=== PATIENT | female | born 1980 | race Asian ===

== ENCOUNTER 2025-02-04 10:41 | Emergency (ER) | payer OTHER, SELFPAY ==
[2025-02-04 10:42] VITALS: BP 171/112
--- NOTE | 2025-02-04 11:11 | ED.GENMED ---
History of Present Illness
General
Chief Complaint: Headache
Source: patient
Time Seen by Provider: 02/04/25 10:59
History of Present Illness
History of Present Illness:
44-year-old female with past medical history of hypertension (newly diagnosed) presenting to the emergency department for evaluation at the request of primary care provider for evaluation after patient has noted she has had a left-sided headache for
the last 3 to 4 days, saw the primary care in office yesterday where she was found to be hypertensive, treated with a 5 mg tablet of amlodipine and advised to come back to the ER today where she was found to still be hypertensive and due to the
headache was recommended to come to the ER for further evaluation. Patient took 2 Tylenol yesterday with no relief. She did not take anything for the headache today, she did take 10 mg of amlodipine prior to arrival. Prior to the last couple of
days she had never taken any medications for blood pressure in the past. Patient does note that about 1 month ago she did have an abnormal sensation on the left side of her head while driving to [place] for work describing it to be as if she were
floating/felt spacey with the symptoms resolving after a few hours. She denies any visual disturbances including diplopia, focal weakness or numbness, chest pain or shortness of breath, abdominal pain, nausea, vomiting, fevers or recent illnesses.
Patient does endorse being under a fair amount of stress due to job related issues. Family history is unknown
Past History
Past History
ED Past Medical History: HTN; Negative Asthma, Hypercholesterolemia or NIDDM
ED Past Surgical History: Gynecological
Social History
Tobacco: Non-smoker
Alcohol: Occasional
Drug: None
Personal:
Living: with family
Review of Systems
Review of Systems
All Other Systems: ROS reviewed and negative except as documented in HPI and ROS
Phy Exam
Physical Exam
Physical Exam:
GENERAL: Alert , in no apparent distress
HEAD: Normocephalic atraumatic
EYE: pupils equal and reactive, 4 mm bilateral, EOMI
NECK: Supple
ENT: o/p clr, mmm.
CARDIAC: Regular rate and rhythm, no murmur.
LUNGS: Clear breath sounds bilaterally, no acute respiratory distress, no wheezes/rales/rhonchi
ABDOMEN: Soft, without focal tenderness, no r/g, no cvat
NEUROLOGICAL: Alert and oriented, no focal neuro deficits, ambulates with steady gait, moves all extremities
SKIN: Warm and dry, skin intact.
MUSCULOSKELETAL: No edema, well perfused.
PSYCH: Normal and appropriate interaction.
Scores
Heart Failure Risk
Heart Failure Risk Score: Not Applicable
Heart Score for Chest Pain Patients
STEMI patient?: Not applicable
Withdrawal Assessment of Alcohol
Withdrawal Assessment Completed?: Not applicable
Course
Orders/Labs/Results
Orders:
Orders
02/04/25 10:50
Test Result ONCE
02/04/25 11:09
CT Head W/o Iv Contrast Urgent
Comment:
Reason For Exam: left sided headache, HTN
02/04/25 11:44
Basic Metabolic Panel Urgent
Beta Hcg Serum Qualitative Screen [HCG, Serum Qualitative Screen] Urgent
CBC/With Diff [Complete Blood Count/With Diff] Urgent
Troponin I Urgent
02/04/25 12:36
Losartan [Cozaar] 50 mg PO NOW STA
Abnormal Lab Results
02/04/25
11:44
Chloride 108 H mmol/L
(98-107)
Glucose 107 H mg/dl
(70-99)
02/04/25 11:44
02/04/25 11:44
Vital Signs
Initial and Last Documented VS:
Initial Vital Signs
Temp Pulse Resp BP Pulse Ox
98.5 F 68 18 171/112 100
02/04/25 10:42 02/04/25 10:42 02/04/25 10:42 02/04/25 10:42 02/04/25 10:42
Last Documented Vital Signs
Temp Pulse Resp BP Pulse Ox
98.5 F 60 18 141/96 98
02/04/25 10:42 02/04/25 12:57 02/04/25 11:39 02/04/25 13:00 02/04/25 11:39
MDM/Problems Addressed
Differential Diagnosis Includes:
Hypertension
Atypical migraine
Hypertensive urgency/emergency
CVA
Intracranial bleeding
Renal dysfunction
No symptoms to suggest infectious etiology
Given age less concern for giant cell arteritis
MDM/Problems Addressed:
44-year-old female presenting to the ER for evaluation of mild left-sided headache, found to be hypertensive by primary care provider over the last 2 days, sent for further evaluation. Hypertensive here but in no acute distress no focal neurologic
deficits. Took 10 mg of amlodipine earlier today. She is declining anything for her headache. Labs and CT ordered. Patient had EKG done yesterday at her primary care provider.
*Radiology
Radiology exam reviewed: radiology read reviewed
*Pulse Oximetry
SaO2: 100
Oxygen Mode of Delivery: Room air
Patient hypoxic: no
*Critical Care Note
Total Time (30-74mins, 75-104mins- exclusive of procedures): Not Applicable
Patient Management
Discussion with other providers: PCP
Escalation/DeEscalation of care consider admission/obs:
Patient blood pressure 140/100 on my reevaluation. Reviewed labs and CT imaging with patient and she ultimately wishes to be discharged home. Offered medication here however patient continues to decline. I contacted primary care provider and
reviewed our work here, requesting we give patient a dose of 50 mg losartan orally as well as a prescription for this and she will follow-up with the patient on continued outpatient basis. Patient advised on dietary modification as well as return
precautions to the ER. 1 month supply of the losartan was sent to pharmacy, continue to take the amlodipine as prescribed by primary care provider. Stable for discharge home otherwise.
ED Attending Note
-
Portions of this chart may have been created with voice recognition software.� Occasional wrong word or��sound alike� substitutions may have occurred due to the inherent limitations of voice recognition software.
Discharge Plan
Departure
Patient Disposition: Home (Routine Discharge)
Date of Disposition: 02/04/25
Time of Disposition: 12:36
Patient with high blood pressure during this ER visit?: Yes
Discharge Problem:
Hypertension
Instructions: High blood pressure in adults
Prescriptions:
New
losartan 50 mg tablet
50 mg PO HS Qty: 30 0RF
Referrals:
Narda Almendarez DO [Family Provider, Family Practice]
Interventions
Interventions:
*Risk Screen - Suicide Last Done: 02/04/25 10:42
*General Assessment Last Done: 02/04/25 10:42
*Neglect/Abuse Screening Last Done: 02/04/25 10:42
*ED- Fall Risk Assessment Last Done: 02/04/25 13:02
*ED COVID-19 Vaccine History Last Done: 02/04/25 11:40
*Nursing Disposition Last Done: 02/04/25 13:02
ED- Neurological Assessment Last Done: 02/04/25 13:02
Discharge Date and Time
Discharge Date/Time: 02/04/25 13:02
Print Language: DOMINICAN
[2025-02-04 11:39] VITALS: BP 180/131
[2025-02-04 11:40] VITALS: BMI 25.0
[2025-02-04 11:53] LABS: Hematocrit 43.8 % (37.0-47.0); Hemoglobin 15.7 g/dL (12.0-16.0); Mean Corp Hgb Conc. 35.8 g/dL (33.0-37.0); Mean Corpuscular Volume 84.9 fL (81.0-99.0); Nucleated Red Blood Cells % 0 %; Platelet Count 300 10^3/uL (130-400); Red Cell Dist. Width 12.2 % (11.5-14.5)
[2025-02-04 12:27] LABS: HCG, Serum Qualitative Screen Negative
[2025-02-04 12:29] LABS: Blood Urea Nitrogen 9 mg/dl (7-17); Calcium 9.3 mg/dl (8.4-10.2); Carbon Dioxide 24 mmol/L (22-30); Chloride 108 mmol/L (98-107); Estimated Creatinine Clearance 99 ml/min; Glucose 107 mg/dl (70-99); Potassium 4.0 mmol/L (3.5-5.1); Sodium 139 mmol/L (135-145); eGFR > 60.00
[2025-02-04 12:37] LABS: Troponin I < 0.012 ng/ml
[2025-02-04] MEDS: COZAAR 50 MG PO (12:57)
[2025-02-04 13:00] VITALS: BP 141/96
== END 2025-02-04 13:02 | disposition home or self-care (01) ==
LOC: EMR 10:41
PROVIDERS: Physician Assistant Medical; EMERGENCY PHYSICIAN Emergency Medicine; FAMILY PHYSICIAN Family Medicine
DX: I10 Essential (primary) hypertension (principal); R51.9 Headache, unspecified; Z88.0 Allergy status to penicillin
CPT/HCPCS: 99284; 70450; 80048; 84484; 84703; 85025